=== PATIENT | male | born 1980 | race Asian ===

== ENCOUNTER 2018-07-06 08:17 | Emergency (ER) | payer OTHER, MEDICAID ==
[~2018-07-06] VITALS: Ht 180.3 cm; Wt 123.9 kg
[2018-07-06] MEDS ORDERED: LIDOCAINE-MPF 1%, 5ML INFIL ONE (08:30)
--- NOTE | 2018-07-06 08:40 | NUR ---
PT RESTING QUIETLY, NO DISTRESS. NO ACTIVE BLEEDING TO LIP. SUTURE SET UP FOR PROVIDER.
[2018-07-06] MEDS ORDERED: LIDOCAINE-MPF 1%, 5ML ONE ×2 (08:55→09:28)
--- NOTE | 2018-07-06 10:10 | NUR ---
PT RESTING QUIETLY. ALERT AND INTERACTING WELL. LIP LAC HAS BEEN REPAIRED. FACE CLEANED. PT AWARE AWAITING RESULTS.
--- NOTE | 2018-07-06 11:05 | NUR ---
PT CLEARED FOR DISCHARGE. AMBULATING WELL UPON DEPARTURE. D/C'D INTO CARE OF LAW ENFORCEMENT.
[2018-07-06 11:08] VITALS: BP 107/68
== END 2018-07-06 11:10 | disposition home or self-care (01) ==
LOC: ED 09:49
DX: S01.511A Laceration without foreign body of lip, initial encounter (principal); S05.8X1A Other injuries of right eye and orbit, initial encounter; I10 Essential (primary) hypertension; E11.9 Type 2 diabetes mellitus without complications; E78.5 Hyperlipidemia, unspecified; X58.XXXA Exposure to other specified factors, initial encounter; Y93.89 Activity, other specified; Y92.89 Other specified places as the place of occurrence of the external cause; Y99.8 Other external cause status
CPT/HCPCS: 40650; 70486; 99285